=== PATIENT | female | born 1975 | race African-American/Black ===

== ENCOUNTER 2024-11-07 10:54 | Emergency (ER) | payer SELFPAY ==
[2024-11-07] MEDS: Take Home: Doxycycline 100 MG Cap, 4 Cap Pack PO ONE (11:44)
[2024-11-07] MEDS: cefTRIAXone 1 GM, Lidocaine 1% 2.1 ML IM SCH (11:44)
[2024-11-07] MEDS: methylPREDNISolone Sodium Succinate 125 MG/2 ML SDV IM ONE (11:45)
== END 2024-11-07 12:15 | disposition home or self-care (01) ==
LOC: EDBD → LL.ED 10:54
DX: J18.9 Pneumonia, unspecified organism (principal); F17.210 Nicotine dependence, cigarettes, uncomplicated; Z88.0 Allergy status to penicillin; Z79.899 Other long term (current) drug therapy; Z90.49 Acquired absence of other specified parts of digestive tract
CPT/HCPCS: 71046; 87428-QW; 96372; 99284; 99285; A9270-GY; J0696; J2003; J2919